=== PATIENT | female | born 1970 | race Asian ===

== ENCOUNTER 2016-10-31 13:56 | Emergency (ER) | payer OTHER ==
[~2016-10-31] VITALS: Ht 157.5 cm; Wt 56.4 kg
[2016-10-31 14:01] VITALS: Ht 157.5 cm; Wt 56.4 kg
[2016-10-31] MEDS ORDERED: NITROGLYCERIN 2% 1 GM OINT PKT TD STA (14:52)
[2016-10-31] MEDS ORDERED: ASPIRIN 325 MG TAB PO STA (14:52)
[2016-10-31] MEDS ORDERED: NITROGLYCERIN (SL) 0.4 MG TAB SL PRN (15:00)
--- NOTE | 2016-10-31 15:24 | RADRPT ---
PROCEDURE: Chest Radiograph. CLINICAL INDICATION: Chest pain TECHNIQUE: Single frontal chest radiograph. COMPARISON: None available FINDINGS: The cardiomediastinal silhouette is within normal limits. No infiltrate or effusion is seen. Th e bones are intact. IMPRESSION: 1. Unremarkable chest radiograph. RPTAT: KK .Robert Plaza MD, MD Date Time Electronically viewed and signed by .Robert Plaza MD, on 10/31/2016 15:24 .B/
[2016-10-31 15:27] LABS: ADD SCAN DIFF NO
[2016-10-31 15:36] LABS: BASOPHILS % 0.3 % (0.0-2.0); EOSINOPHILS # 0.2 10^3/ul (0.0-0.5); EOSINOPHILS % 1.7 % (0.0-7.0); HEMATOCRIT 42.8 % (37.0-47.0); HEMOGLOBIN 14.5 g/dl (12.0-16.0); LYMPHOCYTES % 10.9 % (15.0-51.0); MEAN CORPUSCULAR HEMOGLOBIN 31.2 pg (29.0-33.0); MEAN CORPUSCULAR HGB CONC 33.9 g/dl (32.0-37.0); MEAN PLATELET VOLUME 9.5 fl (7.4-10.4); MONOCYTE # 0.4 10^3/ul (0.3-0.9); MONOCYTES % 3.9 % (0.0-11.0); NEUTROPHIL # 7.6 10^3/ul (1.6-7.5); NEUTROPHILS % 82.8 % (39.0-77.0); PLATELET COUNT 242 10^3/UL (140-415); RED BLOOD COUNT 4.65 10^6/ul (4.20-5.40); RED CELL DISTRIBUTION WIDTH 12.2 % (11.5-14.5); WHITE BLOOD COUNT 9.2 10^3/ul (4.8-10.8)
[2016-10-31 16:05] LABS: CHLORIDE 103 mmol/L (97-110); SODIUM 139 mmol/L (135-144)
[2016-10-31 16:06] LABS: POTASSIUM 3.8 mmol/L (3.5-5.1)
[2016-10-31 16:08] LABS: ANION GAP 14 (8-16); CARBON DIOXIDE 26 mmol/L (21-31)
[2016-10-31 16:09] LABS: BLOOD UREA NITROGEN 15 mg/dl (7-20); CALCIUM 8.9 mg/dl (8.4-10.2); GLUCOSE 108 mg/dl (70-220)
[2016-10-31 16:20] LABS: TROPONIN-I < 0.012 ng/ml (0.00-0.12)
[2016-10-31] MEDS ORDERED: NIT4 SL (19:36)
--- NOTE | 2016-10-31 19:48 | ERD ---
ER Documentation Chief Complaint Date/Time DATE: 10/31/16 TIME: 19:41 Chief Complaint BROUGHT IN VIA EMS FROM WORK DUE TO C/O CHEST PAIN HPI This is a 46-year-old female who is here for complaints of 1 hour prior to arrival with feeling some vague chest tightness with some shortness of breath. She said she started coughing which made her vomit. She said that she is not having any palpitations she says that she thinks maybe she needed her inhaler but she did not have it with her. Her chest pain did not radiate anywhere. She was not syncopal. Currently her pain is mild. She has never had symptoms like this before. She denies feeling anxious. She says the tightness is very vague ROS All systems reviewed and are negative except as per history of present illness. Medications Home Meds Active Scripts Nitroglycerin* (Nitrostat*) 0.4 Mg Tab.subl, 0.4 MG SL Q5MIN Y for CHEST PAIN, # 1 BOTTLE Prov:MARÍA SANDOVAL DO 10/31/16 Allergies Allergies: Coded Allergies: No Known Allergy (Unverified , 10/31/16) PMhx/Soc Medical and Surgical Hx: pt denies Medical Hx, pt denies Surgical Hx Hx Alcohol Use: No Hx Substance Use: No Hx Tobacco Use: No Smoking Status: Never smoker FmHx Family History: No coronary disease Physical Exam Vitals Vital Signs Date Time Temp Pulse Resp B/P Pulse Ox O2 Delivery O2 Flow Rate FiO2 10/31/16 18:30 98.6 69 16 115/52 99 Room Air 10/31/16 16:09 Nasal Cannula 2 10/31/16 15:49 71 17 109/50 99 Room Air 10/31/16 14:01 98.4 61 18 126/66 99 Physical Exam Const: Well-developed, well-nourished Head: Atraumatic, normocephalic Eyes: Normal Conjunctiva, PERRLA, EOMI, normal sclera, no nystagmus ENT: Normal External Ears, Nose and Mouth, moist mucus membranes. Neck: Full range of motion. No meningismus, no lymphadenopathy. Resp: Clear to auscultation bilaterally, no wheezing, rhonchi, rales Cardio: Regular rate and rhythm, no murmurs, S1 S2 present Abd: Soft, non tender x 4, non distended. Normal bowel sounds, no guarding or rebound, no pulsitile abdominal masses or bruits Skin: No petechiae or rashes, no ecchymosis , no maculopapular rash Back: No midline or flank tenderness Ext: No cyanosis, or edema, FROM x 4, normal inspection, neurovascularly intact x 4 Neur: Awake and alert, STR 5/5 x 4, sensation intact x 4, no focal findings, cerebellum intact Psych: Normal Mood and Affect Result Diagram: 10/31/16 1515 10/31/16 1515 Results 24 hrs Laboratory Tests Test 10/31/16 15:15 White Blood Count 9.210^3/ul Red Blood Count 4.6510^6/ul Hemoglobin 14.5g/dl Hematocrit 42.8% Mean Corpuscular Volume 92.0fl Mean Corpuscular Hemoglobin 31.2pg Mean Corpuscular Hemoglobin Concent 33.9g/dl Red Cell Distribution Width 12.2% Platelet Count 32421^3/UL Mean Platelet Volume 9.5fl Neutrophils % 82.8% Lymphocytes % 10.9% Monocytes % 3.9% Eosinophils % 1.7% Basophils % 0.3% Nucleated Red Blood Cells % 0.0/100WBC Neutrophils # 7.610^3/ul Lymphocytes # 1.010^3/ul Monocytes # 0.410^3/ul Eosinophils # 0.210^3/ul Basophils # 0.010^3/ul Nucleated Red Blood Cells # 0.010^3/ul Sodium Level 139mmol/L Potassium Level 3.8mmol/L Chloride Level 103mmol/L Carbon Dioxide Level 26mmol/L Anion Gap 14 Blood Urea Nitrogen 15mg/dl Creatinine 0.70mg/dl Glucose Level 108mg/dl Calcium Level 8.9mg/dl Troponin I < 0.012ng/ml Current Medications Medications (Trade) Dose Ordered Sig/Nirali Route PRN Reason Start Time Stop Time Status Last Admin Dose Admin Aspirin (Aspirin) 325 mg ONCE STAT PO 10/31/16 14:52 10/31/16 14:53 DC 10/31/16 15:26 Nitroglycerin (Nitroglycerin 2% Oint) 1 inch ONCE STAT TD 10/31/16 14:52 10/31/16 14:53 DC 10/31/16 15:25 Nitroglycerin (Nitroglycerin (Sl Tab) 0.4 Mg) 1 tab Q5M UP TO 3 DOSES PRN SL CHEST PAIN 10/31/16 15:00 10/31/16 15:26 Procedures/MDM EKG: Rate/Rhythm: Normal Sinus Rhythm,NL intervals QRS, ST, QT: NORMAL CO, QRS, QT] Impression: NORMAL EKG PROCEDURE: Chest Radiograph. CLINICAL INDICATION: Chest pain TECHNIQUE: Single frontal chest radiograph. COMPARISON: None available FINDINGS: The cardiomediastinal silhouette is within normal limits. No infiltrate or effusion is seen. The bones are intact. IMPRESSION: 1. Unremarkable chest radiograph. RPTAT: KK .Robert Plaza MD, MD Date Time Electronically viewed and signed by .Robert Plaza MD, MD on 2016 15:24 .B/ CC: MARÍA SANDOVAL DO Patient's troponin is negative. Plan admit the patient however she was initially resistant then was resolved to stay in the hospital for cardiac workup. He had an extensive discussion about the risks of leaving and she decided to stay. However, about an hour later the patient says she wants to go home because she feels fine. Again, I discussed with her the risk of leaving hospital AGAINST MEDICAL ADVICE due to the fact she has chest pain which could lead to myocardial infarction or sudden . She should stay for a workup including rule out and possible stress test. She says she wants to leave because she needs to take care of her 16-year-old and 10-year-old and her has to work tonight. Patient is awake and alert and coherent to make decisions she says she is going to go home. She says she thinks her symptoms were due to her asthma and that she did not have her inhaler and that all of her chest pain was from lungs including her coughing making her vomit postussive. She agreed to sign AGAINST MEDICAL ADVICE I will provide her with nitroglycerin sublingual Departure Diagnosis: Primary Impression: Chest pain Chest pain type: unspecified Qualified Code: R07.9 - Chest pain, unspecified type Condition: Fair Patient Instructions: Chest Pain, Uncertain Cause Referrals: EVA VOGT (PCP) MARÍA SANDOVAL DO Oct 31, 2016 19:48
[2016-10-31 20:03] VITALS: BP 112/60; PULSE 74; RESP 16; TEMP 98.6
== END 2016-10-31 20:05 | disposition left against medical advice (07) ==
LOC: E/R 13:56
DX: R07.89 Other chest pain (principal); R40.2142 Coma scale, eyes open, spontaneous, at arrival to emergency department
CPT/HCPCS: 71010; 80048; 84484; 85025; 93005